=== PATIENT | female | born 1965 | race Hispanic/Latino ===

== ENCOUNTER 2017-07-02 12:19 | Outpatient (CLI) | payer OTHER | END 2017-07-02 12:20 | disposition home or self-care (01) | LOC: BICMAMMO 12:19 | PROVIDERS: ATTEND Family Medicine | DX: Z12.31 Encounter for screening mammogram for malignant neoplasm of breast (principal) | CPT/HCPCS: 77063; 77067 ==

== ENCOUNTER 2017-10-01 11:32 | Outpatient (CLI) | payer OTHER | END 2017-10-01 11:33 | disposition home or self-care (01) | LOC: CTENTCT 11:32 | PROVIDERS: ATTEND Otolaryngology Plastic Surgery within the Head & Neck | DX: J32.9 Chronic sinusitis, unspecified (principal) | CPT/HCPCS: 70486 ==

== ENCOUNTER 2017-12-09 11:01 | Outpatient (CLI) | payer OTHER ==
--- NOTE | 2017-12-09 12:50 | ULT ---
GALLBLADDER ULTRASOUND: History: Right upper quadrant pain. FINDINGS: Real-time imaging of the right upper quadrant shows a gallstone within the gallbladder neck region. C ommon duct is 5 mm. The liver shows increased echogenicity and measures 16 cm in length. The pancreas is obscured. Right kidney is normal in size and not obstructed. IMPRESSION: 1. Cholelithiasis with a normal caliber common duct. The duct measures in the 5 mm range. 2. Suggestion of some fatty change of the liver. POS: [facility]
== END 2017-12-09 11:02 | disposition home or self-care (01) ==
LOC: SCSULT 11:01
PROVIDERS: ATTEND Internal Medicine Gastroenterology
DX: R10.9 Unspecified abdominal pain (principal); K80.20 Calculus of gallbladder without cholecystitis without obstruction
CPT/HCPCS: 76705

== ENCOUNTER 2018-02-01 16:35 | Outpatient (CLI) | payer OTHER ==
[2018-02-01 17:46] LABS: BHCG - Serum Negative (NEGATIVE); Pregs Control Background? CLEAR/WHITE (CLR/WHITE); Pregs Control Bar Appear? YES (CONTROL BAR)
[2018-02-01 18:08] LABS: ALT (SGPT) 27 U/L (8-55); AST (SGOT) 19 U/L (5-34); Albumin 4.7 g/dL (3.5-5.0); Alkaline Phosphatase 60 U/L (40-150); Anion Gap 13 mmol/L (10-20); BUN (Urea Nitrogen) 11 mg/dL (9.8-20.1); Bilirubin, Direct 0.1 mg/dL (0.1-0.3); Bilirubin, Total 0.3 mg/dL (0.2-1.2); Calc. Creatinine Clearance 0 mL/min (70-130); Calcium 10.3 mg/dL (7.8-10.44); Carbon Dioxide 28 mmol/L (22-29); Chloride 101 mmol/L (98-107); Estimated GFR-MDRD Greater than 90; Glucose 127 mg/dL (70-105); Potassium 4.4 mmol/L (3.5-5.1); Protein, Total 7.7 g/dL (6.0-8.3); Sodium 138 mmol/L (136-145)
[2018-02-01 18:47] LABS: #Lymphocytes 0.9 thou/uL (1.20-3.40); #Monocytes 0.2 thou/uL (0.11-0.59); #Neutrophils 6.8 thou/uL (1.40-6.50); %Basophils 0.1 % (0.0-1.0); %Eosinophils 0.2 % (0.0-10.0); %Lymphocytes 11.1 % (21.0-51.0); %Neutrophils 86.6 % (42.0-75.0); Hemoglobin 9.3 g/dL (12.0-16.0); Hypochromia SLIGHT = 6-15 cells (100X) (0-5/hpf); Lymphocytes 7 % (21-51); MDiff Complete? YES; Mean Corpuscular HGB CONC 29.4 g/dL (32.0-36.0); Mean Corpuscular Hemoglobin 21.5 pg (27.0-31.0); Mean Corpuscular Volume 73.2 fL (78.0-98.0); Mean Platelet Volume 8.3 fL (7.4-10.4); Microcytosis SLIGHT = 6-15 cells (100X) (0-5/hpf); Neutrophil 93 % (42-75); PLT Morphology Comment Appears Adequate; Platelet Count 298 thou/uL (130-400); Polychromasia SLIGHT = 2-3 cells (100X) (0-2/hpf); RBC Distribution Width 16.4 % (11.5-14.5); Red Blood Cell (RBC) Count 4.33 mill/uL (4.20-5.40); White Blood Cell (WBC) Count 7.8 thou/uL (4.8-10.8)
--- NOTE | 2018-02-02 12:57 | EKG ---
Test Reason : Blood Pressure : / mmHG Vent. Rate : 057 BPM Atrial Rate : 057 BPM P-R Int : 148 ms QRS Dur : 076 ms QT Int : 432 ms P-R-T Axes : 038 061 031 degrees QTc Int : 420 ms Sinus bradycardia Otherwise normal ECG No previous ECGs available Confirmed by DIANA CEDILLO ([id number]) on 02/02/2018 12:56:38 PM Referred By: SUZIE Confirmed By:DIANA CEDILLO
== END 2018-02-01 16:36 | disposition home or self-care (01) ==
LOC: LABBT 16:35
PROVIDERS: ATTEND Surgery
DX: Z01.818 Encounter for other preprocedural examination (principal); K80.20 Calculus of gallbladder without cholecystitis without obstruction
CPT/HCPCS: 80053; 80076; 84703; 85025; 93005; 93010

== ENCOUNTER → 2018-02-04 | Day surgery (SDC) | payer OTHER ==
[2018-02-01 16:54] VITALS: BMI 29.0
[~2018-02-04] MED LIST: Bupivacaine/Epinephrine 0.25% 30 ML VIAL ONE; Dexamethasone 20 MG/5 ML VIAL ONE; Fentanyl 100 MCG/2 ML VIAL ONE; Glycopyrrolate 0.2 MG/ML 5 ML SYRINGE ONE; HYDROmorphone 2 MG/ML VIAL ONE; Ketorolac Tromethamine 30 MG/ML VIAL ONE; Lidocaine 1% PF 5 ML VIAL ONE; Midazolam HCl 2 mg/2 ml Vial ONE; Morphine 2 MG/ML SYRINGE ONE; Ondansetron PF 4 MG/2 ML Vial ONE; PROPOFOL 200 MG/20 ML VIAL ONE; Promethazine HCl 25 MG/ML VIAL ONE; Sodium Chloride 0.9% 100 ML ONE; cefOXitin 2 GM VIAL ONE
--- NOTE | 2018-02-04 10:36 | OP ---
PREOPERATIVE DIAGNOSIS: Symptomatic cholelithiasis. SURGEON: Bradley Nunez M.D. PROCEDURE PERFORMED: Laparoscopic cholecystectomy. INDICATIONS: This is a 52-year-old female, who has been having episodic right upper quadrant pain, r adiating to the back, associated with nausea. Ultrasound shows cholelithiasis. FINDINGS: Small caliber cystic duct, single large stone. PROCEDURE: After informed consent was obtained, the patient was taken to the operating room and give n general endotracheal anesthesia, placed in supine position. Abdomen was prepped and draped in usua l fashion. Local anesthesia infiltrated subcutaneously and deep. A subumbilical incision was perfor med. The subcu divided sharply. The fascia grasped, 2 stay sutures of 0 Vicryl placed to either letty e of midline. Midline incised. Digital palpation revealed no local adhesions. A blunt 10-12-mm tro car inserted. Pneumoperitoneum was created to a pressure of 15 mmHg. A 0-degree laparoscope inserte d under direct vision, three 5-mm ports were placed subcostally. The gallbladder was grasped, advanc ed superiorly. The peritoneum dissected to expose the cystic duct, cystic artery, and critical view. The duct and artery triply ligated with Hemoclips and divided. The gallbladder removed from its fo ssa utilizing electrocautery, removed from the abdomen through the umbilical port. Hemostasis assure d. Trocars and retractors removed. The fascia closed with interrupted 0 Vicryl suture. The skin cl osed with interrupted 4-0 Rapide. Dermabond applied. The patient tolerated the procedure well and t ransferred to recovery in good condition. Sponge and needle count verified correct x2.
== END ==
LOC: SDC 07:22
PROVIDERS: ATTEND Surgery
PROC: 0FT44ZZ Resection of Gallbladder, Percutaneous Endoscopic Approach (ICD-10-PCS; principal; 2018-02-04)
DX: K80.10 Calculus of gallbladder with chronic cholecystitis without obstruction (principal); J45.909 Unspecified asthma, uncomplicated; Z88.5 Allergy status to narcotic agent; Z79.82 Long term (current) use of aspirin; Z79.899 Other long term (current) drug therapy
CPT/HCPCS: 88304; 96374; 96375; J0131; J0694; J1100; J1170; J1885; J2001; J2250; J2270; J2405; J2550; J2704; J3010; J7050

== ENCOUNTER 2018-02-11 17:18 | Inpatient (IN) | payer OTHER ==
[2018-02-11] MEDS ORDERED: Ondansetron ODT 4 MG TAB ONE (18:18)
[2018-02-11] MEDS ORDERED: Ondansetron PF 4 MG/2 ML Vial ONE (19:14)
[2018-02-11] MEDS ORDERED: Promethazine HCl 25 MG/ML VIAL ONE ×2 (19:36→20:58)
[2018-02-11 19:57] LABS: #Lymphocytes 0.6 thou/uL (1.20-3.40); #Monocytes 0.4 thou/uL (0.11-0.59); #Neutrophils 8.4 thou/uL (1.40-6.50); %Basophils 0.2 % (0.0-1.0); %Eosinophils 0.1 % (0.0-10.0); %Lymphocytes 6.8 % (21.0-51.0); %Monocytes 4.5 % (0.0-10.0); %Neutrophils 88.5 % (42.0-75.0); Hemoglobin 9.4 g/dL (12.0-16.0); Mean Corpuscular HGB CONC 29.7 g/dL (32.0-36.0); Mean Corpuscular Hemoglobin 21.7 pg (27.0-31.0); Mean Corpuscular Volume 73.2 fL (78.0-98.0); Platelet Count 266 thou/uL (130-400); RBC Distribution Width 17.3 % (11.5-14.5); Red Blood Cell (RBC) Count 4.33 mill/uL (4.20-5.40); White Blood Cell (WBC) Count 9.4 thou/uL (4.8-10.8)
[2018-02-11 20:12] LABS: ALT (SGPT) 17 U/L (8-55); AST (SGOT) 20 U/L (5-34); Alkaline Phosphatase 67 U/L (40-150); Anion Gap 13 mmol/L (10-20); BUN (Urea Nitrogen) 9 mg/dL (9.8-20.1); Bilirubin, Total 0.5 mg/dL (0.2-1.2); Calc. Creatinine Clearance 0 mL/min (70-130); Calcium 8.8 mg/dL (7.8-10.44); Carbon Dioxide 21 mmol/L (22-29); Chloride 99 mmol/L (98-107); Estimated GFR-MDRD Greater than 90; Glucose 120 mg/dL (70-105); Lipase 6 U/L (8-78); Potassium 3.5 mmol/L (3.5-5.1); Sodium 129 mmol/L (136-145)
--- NOTE | 2018-02-11 20:54 | RAD ---
ACUTE ABDOMINAL SERIES: Indication: Constipation following cholecystectomy. FINDINGS: Lungs are clear. No pleural effusion or pneumothorax is evident. No definite free air is evident. Cho lecystectomy clips are seen within the right upper quadrant. There is a moderate amount of retained s tool in the left hemicolon. There are fluid and gas levels seen within the region of the right hemico danae. There is moderate gaseous distention of loops of small bowel within the central abdomen. IMPRESSION: 1. Findings thought to reflect a post-operative ileus. There is slight distention of loops of colon a nd small bowel. There is a moderate amount of retained stool within the left hemicolon. 2. No acute cardiopulmonary abnormality is evident. 3. Cholecystectomy clips within the right upper quadrant. One small clip is seen within the lower pel vis, likely related to a displaced clip. POS: [facility]
[2018-02-11] MEDS ORDERED: Pantoprazole 40 MG VIAL ONE (21:23)
[2018-02-12] MEDS: Sodium Chloride 0.9% 1,000 ML IV SCH ×2 (00:30→05:21)
[2018-02-12] MEDS ORDERED: Ondansetron PF 4 MG/2 ML Vial IVP PRN (00:43)
[2018-02-12] MEDS ORDERED: Promethazine HCl 25 MG/ML VIAL IM/IV PRN (00:44)
[2018-02-12] MEDS ORDERED: Ketorolac Tromethamine 30 MG/ML VIAL IVP PRN (00:46)
[2018-02-12] MEDS ORDERED: Chloraseptic Spray 180 ml Bottle PO PRN (00:47)
[2018-02-12] MEDS ORDERED: Cepastat Lozenges 1 LOZ PO PRN (00:47)
[2018-02-12] MEDS: D5 1/2 NS w/20 mEq KCL 1,000 ML IV SCH ×2 (01:27→09:24)
[2018-02-12 02:59] VITALS: BMI 29.2
--- NOTE | 2018-02-12 07:56 | HP ---
CHIEF COMPLAINT: Severe constipation postop. HISTORY OF PRESENT ILLNESS: The patient is a 52-year-old female who is 8 days status post laparoscop ic cholecystectomy for symptomatic cholelithiasis. She did take [place] for 3-4 days postop. Her last bowel movement was the day prior to surgery. She has been eating up until the last couple of days w hen she has developed vomiting. She is passing flatus, but only a few small good since surgery. She was vomiting and came to the emergency room last night. She has tried enemas, magnesium citrate, lactulose, Ex-Lax, fiber without results. PAST MEDICAL HISTORY: Hyperlipidemia, asthma, and gastroesophageal reflux. PAST SURGICAL HISTORY: She has had a cervical cerclage as well as the laparoscopic cholecystectomy. MEDICATIONS: Aspirin, [place], Ventolin, losartan, Lexapro. ALLERGIES: CODEINE. SOCIAL HISTORY: Occasional alcohol. She is . No tobacco. PHYSICAL EXAMINATION: VITAL SIGNS: Temperature 98.4, pulse 70, blood pressure 124/76. GENERAL: She is awake, alert, does not appear to be in any distress at this time. HEENT: No jaundice. LUNGS: Clear. HEART: Regular rate and rhythm. ABDOMEN: Soft, no significant tenderness. No palpable masses. EXTREMITIES: Unremarkable. Incisions are healing well. KUB shows a postop ileus with retained stool in the left colon from the entire descending colon. LABORATORY AND X-RAY FINDINGS: Her white count is 9.4, H&H 9.4 and 31, platelet count 266. Electrol ytes: Sodium 129. Her glucose is 120, creatinine 0.6. LFTs normal. ASSESSMENT: High fecal impaction with obstruction. PLAN: Try some mineral oil. A small bowel follow through with Gastrografin.
--- NOTE | 2018-02-12 10:49 | RAD ---
BARIUM ENEMA THERAPEUTIC WATER SOLUABLE CONTRAST: History: Inability to defecate after surgery. Comparison: None. FINDINGS: The patient was brought to the fluoroscopy suite where all questions were answered. A retrograde tip was placed into the patient's rectum. Approximately 100 mL of water soluable contras t was instilled retrograde into the rectum. The entire colon was visualized. The patient did have a b owel movement afterwards. IMPRESSION: Technically successful therapeutic barium enema. POS: [facility]
[2018-02-12 15:48] VITALS: BP 126/79; TEMP 97.8
--- NOTE | 2018-02-13 00:22 | DIS ---
DISCHARGE DIAGNOSIS: High fecal impaction. PROCEDURES DURING ADMISSION: IV hydration, Gastrografin enema. HOSPITAL COURSE: Patient was admitted. She was having quite a bit of nausea and cramps. She was tr eated with antibiotics and IV fluids, taken to the radiology department, where she underwent Gastrogr afin enema, it showed they were able to visualize whole colon any defects. She had a bowel mov ement. She has not had multiple bowel movements, feeling much better. She is discharged home in goo d condition on MiraLax 1 cap full daily. She will follow up with me in a week.
== END 2018-02-12 18:09 | disposition home or self-care (01) | DRG 389 ==
LOC: ERS 17:18 → SURG B 21:17
PROVIDERS: ADMIT Surgery; ATTEND Surgery
DX: K56.41 Fecal impaction (principal); K91.32 Postprocedural complete intestinal obstruction; E78.5 Hyperlipidemia, unspecified; K21.9 Gastro-esophageal reflux disease without esophagitis
CPT/HCPCS: 36415; 74022; 74283; 80053; 82274; 83690; 85025; 86850; 86900; 86901; 96365; 96366; 96375; 96376; C9113; J2405; J2550; Q0162

== ENCOUNTER 2018-12-22 15:33 | Outpatient (CLI) | payer BC ==
--- NOTE | 2018-12-22 16:06 | RAD ---
XR Clavicle Rt 2 V STANDARD History: [id number] pain of right clavicle Comparison: None. Findings: Clavicle is intact. No fracture. No malalignment. Region of interest marker is along the medial right clavicle which is limited due to the overlying sp ine. Moderate degenerative disease acromioclavicular joint. Ribs are intact. Normal glenohumeral alignment. Impression: No acute osseous abnormality. CT or MRI as greater sensitivity for medial clavicular abno rmalities.
== END 2018-12-22 15:34 | disposition home or self-care (01) ==
LOC: SCSRAD 15:33
PROVIDERS: ATTEND Family Medicine
DX: M89.8X1 Other specified disorders of bone, shoulder (principal)

== ENCOUNTER 2018-12-23 12:02 | Outpatient (CLI) | payer BC ==
--- NOTE | 2018-12-23 12:42 | MMO ---
Bilateral MAMMO Bilat Screen [facility]. CLINICAL HISTORY: Patient is 53 years old and is seen for screening. The patient has no family history of breast cancer. The patient has no personal history of cancer. VIEWS: The views performed were: bilateral craniocaudal with tomosynthesis and bilateral mediolateral oblique with tomosynthesis. FILMS COMPARED: The present examination has been compared to prior imaging studies performed at [facility] on 06/21/2013 and 07/02/2017. This study has been interpreted with the assistance of computer-aided detection. MAMMOGRAM FINDINGS: The breasts are heterogeneously dense, which could obscure a lesion on mammography. There are stable benign appearing calcifications seen in both breasts. There are no suspicious masses, suspicious calcifications, or new areas of architectural distortion. IMPRESSION: THERE IS NO MAMMOGRAPHIC EVIDENCE OF MALIGNANCY. A ROUTINE FOLLOW-UP MAMMOGRAM IN 1 YEAR IS RECOMMENDED. THE RESULTS OF THIS EXAM WERE SENT TO THE PATIENT. ACR BI-RADS Category 2 - Benign finding MAMMOGRAPHY NOTE: 1. A negative mammogram report should not delay a biopsy if a dominant of clinically suspicious mass is present. 2. Approximately 10% to 15% of breast cancers are not detected by mammography. 3. Adenosis and dense breasts may obscure an underlying neoplasm. Reported by: ISABEL FLORES MD Electonically Signed: [id number]
== END 2018-12-23 12:03 | disposition home or self-care (01) ==
LOC: BICMAMMO 12:02
PROVIDERS: ATTEND Family Medicine
DX: Z12.31 Encounter for screening mammogram for malignant neoplasm of breast (principal)
CPT/HCPCS: 77063; 77067

== ENCOUNTER 2020-07-04 08:16 | Outpatient (CLI) | payer BC | END 2020-07-04 08:17 | disposition home or self-care (01) | LOC: BICCT 08:16 | PROVIDERS: ATTEND Family Medicine | DX: Z12.31 Encounter for screening mammogram for malignant neoplasm of breast (principal) | CPT/HCPCS: 77063; 77067 ==

== ENCOUNTER 2020-07-19 13:56 | Outpatient (CLI) | payer BC ==
[~2020-07-19 13:56] MED LIST changes: -Bupivacaine/Epinephrine 0.25% 30 ML VIAL ONE; -Dexamethasone 20 MG/5 ML VIAL ONE; -Fentanyl 100 MCG/2 ML VIAL ONE; -Glycopyrrolate 0.2 MG/ML 5 ML SYRINGE ONE; -HYDROmorphone 2 MG/ML VIAL ONE; -Ketorolac Tromethamine 30 MG/ML VIAL ONE; -Lidocaine 1% PF 5 ML VIAL ONE; +Magnevist 469MG/ML 20 ML VIAL ONE; -Midazolam HCl 2 mg/2 ml Vial ONE; -Morphine 2 MG/ML SYRINGE ONE; -Ondansetron PF 4 MG/2 ML Vial ONE; -PROPOFOL 200 MG/20 ML VIAL ONE; -Promethazine HCl 25 MG/ML VIAL ONE; -Sodium Chloride 0.9% 100 ML ONE; -cefOXitin 2 GM VIAL ONE
== END 2020-07-19 13:57 | disposition home or self-care (01) ==
LOC: TBSIIMAG 13:56
PROVIDERS: ATTEND Family Medicine
DX: R42 Dizziness and giddiness (principal); R51.9 Headache, unspecified
CPT/HCPCS: 70553; A9579

== ENCOUNTER 2021-07-25 09:45 | Outpatient (CLI) | payer BC | END 2021-07-25 09:46 | disposition home or self-care (01) | LOC: BICMAMMO 09:45 | PROVIDERS: ATTEND Nurse Practitioner Family | DX: Z12.31 Encounter for screening mammogram for malignant neoplasm of breast (principal) | CPT/HCPCS: 77063; 77067 ==

== ENCOUNTER 2021-09-06 10:23 | Emergency (ER) | payer BC ==
[~2021-09-06 10:23] MED LIST changes: +Iopamidol-370 76% 500 ML 1 ML ONE; -Magnevist 469MG/ML 20 ML VIAL ONE
[2021-09-06 10:53] LABS: #Eosinphils 0.1 thou/uL (0.0-0.7); #Lymphocytes 1.1 thou/uL (1.20-3.40); #Monocytes 0.3 thou/uL (0.11-0.59); #Neutrophils 2.4 thou/uL (1.40-6.50); %Basophils 0.8 % (0.0-1.0); %Eosinophils 2.3 % (0.0-10.0); %Monocytes 8.1 % (0.0-10.0); %Neutrophils 60.8 % (42.0-75.0); Hemoglobin 13.6 g/dL (12.0-16.0); Mean Corpuscular HGB CONC 34.4 g/dL (32.0-36.0); Mean Corpuscular Hemoglobin 34.7 pg (27.0-31.0); Mean Platelet Volume 7.5 fL (7.4-10.4); Platelet Count 170 thou/uL (130-400); RBC Distribution Width 10.9 % (11.5-14.5); Red Blood Cell (RBC) Count 3.91 mill/uL (4.20-5.40)
[2021-09-06 11:14] LABS: ALT (SGPT) 134 U/L (8-55); AST (SGOT) 94 U/L (5-34); Albumin 4.2 g/dL (3.5-5.0); Alkaline Phosphatase 84 U/L (40-110); Anion Gap 12 mmol/L (10-20); BUN (Urea Nitrogen) 9 mg/dL (9.8-20.1); Bilirubin, Total 0.7 mg/dL (0.2-1.2); Calc. Creatinine Clearance 0 mL/min (70-130); Calcium 9.6 mg/dL (7.8-10.44); Carbon Dioxide 30 mmol/L (22-29); Chloride 101 mmol/L (98-107); Globulin 2.8 g/dL (2.4-3.5); Glucose 159 mg/dL (70-105); Potassium 3.7 mmol/L (3.5-5.1); Sodium 139 mmol/L (136-145)
[2021-09-06 11:25] LABS: Bacteria/HPF None Seen HPF (None Seen); Bilirubin Negative (Negative); Blood, Urine Negative (Negative); Clarity Clear (Clear); Glucose, Urine (Dipstick) Normal (Negative); Ketone, Urine Negative (Negative); Leukocyte 25 Leu/uL (Negative); Nitrite Negative (Negative); Protein, Urine (Dipstick) Negative (Neg-Trace); RBC/HPF 0-3 HPF (0-3); Specific Gravity, Urine 1.011 (1.002-1.036); Squamous Epithelial 0-3 HPF (0-3); Urobilinogen Normal mg/dL (Less than 2); WBC/HPF 0-3 HPF (0-3)
[2021-09-06] MEDS ORDERED: Ketorolac Tromethamine 30 MG/ML VIAL ONE (12:34)
== END 2021-09-06 13:18 | disposition home or self-care (01) ==
LOC: ERS 10:23
DX: R10.31 Right lower quadrant pain (principal); I10 Essential (primary) hypertension; Z79.82 Long term (current) use of aspirin; Z79.899 Other long term (current) drug therapy
CPT/HCPCS: 36415; 74177; 80053; 81003; 81015; 85025; 96361; 96374; J1885

== ENCOUNTER 2023-02-05 10:18 | Outpatient (CLI) | payer OTHER | END 2023-02-05 10:19 | disposition home or self-care (01) | LOC: BICMAMMO 10:18 | PROVIDERS: ATTEND Family Medicine | DX: Z12.31 Encounter for screening mammogram for malignant neoplasm of breast (principal) | CPT/HCPCS: 77063; 77067 ==